=== PATIENT | female | born 1995 | race Caucasian/White ===

== ENCOUNTER 2021-02-15 13:38 | Emergency (ER) | payer MEDICAID, SELFPAY ==
--- NOTE | 2021-02-15 13:42 | W.ED.GENAD ---
Discharge Plan Disposition Patient Disposition: HOME Condition: Stable Discharge Details Clinical Impression: Contusion of right foot Primary Care Provider: Erica Umana ED Provider: Libertad Richard Home Meds and New Rx's Prescriptions: Continued medroxyprogesterone 150 MG/ML suspension 150 mg IM DIRECTED RF: 0 Discharge Instructions Instructions: Foot Contusion (ED) Additional Instructions: Rest, ice, and elevate the affected area as much as possible. Alternate tylenol and motrin as needed and directed for pain. Use the crutches for ambulation as needed. Follow-up with your primary care doctor in 1 week. Return to the emergency department with any worsening or new concerning symptoms. Referrals: Tucker Napier MD [ [facility] STAFF PHYSICIAN] - Discharge Data Discharge Physician: Libertad Richard Medical Decision Making 25-year-old female presents with right foot injury after caught between a cut off sawyer and blade just prior to arrival. No open wounds noted. There is an area of minimal ecchymosis, moderate edema and tenderness palpation to the mid to distal portion of her dorsal foot. There is no crepitus, cellulitis or deformity. She has neurovascular intact. Urine test negative. She was given a dose of ibuprofen here. Patient referred for x-rays which were negative for acute fracture but noted soft tissue swelling. Patient had an Arnold wrap placed to the left foot and placed in a postop shoe. Patient requesting crutches. She was given orthopedic follow-up information if needed. Usual and customary return precautions given prior to discharge. Medical Records Medical records reviewed: Yes I reviewed the patient's medical records. Imaging Data Radiologic Study: Radiologist's impression: XR Right Foot Exam date and time: 02/15/2021 2:18 PM Age: 25 years old Clinical indication: Other: Caught RT foot in cut off sawyer, R/O FX TECHNIQUE: Imaging protocol: XR Right foot. Views: 3 or more views. COMPARISON: No relevant prior studies available. FINDINGS: Bones/joints: Normal. Soft tissues: Lateral soft tissue swelling is noted. IMPRESSION: Soft tissue swelling. No acute fracture. XR Right Ankle Exam date and time: 02/15/2021 2:18 PM Age: 25 years old Clinical indication: Other: Caught RT foot in cut off sawyer, R/O FX TECHNIQUE: Imaging protocol: XR Right ankle. Views: 3 or more views. COMPARISON: No relevant prior studies available. FINDINGS: Bones/joints: Normal. Soft tissues: Normal. IMPRESSION: No acute findings. HPI General Mode of arrival: ambulatory. Date/Time Provider Initiated Documentation: 02/15/21 13:42. Limitations to Documentation: no limitations. Information obtained by: patient. HPI Narrative: Patient is a 25-year-old female who presents to the ED with a complaint of right foot injury after caught between a cut off sawyer blade and a scooter causing twisting injury of her foot just prior to arrival. Patient has not taken anything for pain. She denies any ankle injury. She states the main area of pain is her distal foot. Related Data Home Medications Medication Instructions Recorded Confirmed medroxyprogesterone 150 mg IM DIRECTED 12/16/13 02/15/21 Allergies Allergy/AdvReac Type Severity Reaction Status Date / Time No Known Allergies Allergy Unverified 02/15/21 13:54 Review of Systems All systems reviewed & are unremarkable except as noted in HPI and below PFSH Medical History (Updated 02/15/21 @ 16:57 by Libertad Richard DO) Anxiety Surgical History (Updated 02/15/21 @ 16:57 by Libertad Richard DO) History of adenoidectomy S/p bilateral myringotomy with tube placement Social History Smoking/Tobacco Use Status: Never Smoking risk assessment performed?: Yes Alcohol Intake: never Drug use: Occasionally Substance use type: marijuana Do you feel safe at home: Yes Do you feel safe in your relationship?: Yes Exam Const General: cooperative, healthy appearing and no acute distress HENMT Head: normal to inspection Mouth: oral mucosae normal Eyes General: appearance normal, both eyes and all related structures Neck Neck: normal visual inspection Resp Effort & Inspection: normal respiratory effort and able to speak in complete sentences Cardio Rate: regular rate Skin General skin exam: no rashes or lesions noted Neuro General: patient alert, patient awake and patient oriented x3 Motor: muscle tone normal throughout Extrem Ankle/foot/toe images: 1. Mild to moderate edema and tenderness overlying the mid to distal aspect of dorsal left foot. There is also minimal ecchymosis noted. No erythema, crepitus or deformity. Other: Left DP/PT pulses intact. Psych Appearance: grossly normal Affect: normal affect
--- NOTE | 2021-02-15 13:45 | DI.RAD_ITS ---
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 TECHNIQUE: 2D digital imaging was performed. COMPARISON: No exams were available for comparison FINDINGS: There is no prominent soft tissue swelling. Malleoli are intact. No obvious fracture lines nor wide doe of the mortise. Talar dome appears unremarkable. On the lateral view there is a small 1.7 millimeter calcific density seen off of the dorsal aspect of distal talus. Cannot exclude subtle avulsion at this level. Correlation with site of tenderness is recommended. No degenerative changes in the ankle and subtalar joints. No evidence of obvious osse ous tarsal coalition. IMPRESSION: DATA REPOSITORY: RADIATION DOSE DELIVERED:
--- NOTE | 2021-02-15 13:45 | DI.RAD_ITS ---
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 TECHNIQUE: 2D digital imaging was performed. COMPARISON: No exams were available for comparison FINDINGS: There are no obvious fracture lines nor diastasis of the Lisfranc joint. No radiopaque foreign body. No osseous lesions nor erosions. On the lateral view there is a 1 millimeter calcific density seen off the dorsal aspect of the distal talus, possibly significant. Correlation with site of tenderness is recommended. IMPRESSION: DATA REPOSITORY: RADIATION DOSE DELIVERED:
[2021-02-15 13:47] VITALS: BP 129/69; PULSE 98; RESP 18; TEMP 36.7; O2SAT 98
--- NOTE | 2021-02-15 14:41 | DI.VRAD_ITS ---
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 Views: 3 or more views. COMPARISON: No relevant prior studies available. FINDINGS: Bones/joints: Normal. Soft tissues: Lateral soft tissue swelling is noted. IMPRESSION: Soft tissue swelling. No acute fracture. Dictated and Authenticated by: Owen Vogt MD. Ordering:ALBA Maurer MD
--- NOTE | 2021-02-15 14:42 | DI.VRAD_ITS ---
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 Views: 3 or more views. COMPARISON: No relevant prior studies available. FINDINGS: Bones/joints: Normal. Soft tissues: Normal. IMPRESSION: No acute findings. Dictated and Authenticated by: Owen Vogt MD. Ordering:ALBA Maurer MD
[2021-02-15] MEDS: Ibuprofen 600 MG TAB PO (15:00)
== END 2021-02-15 15:40 | disposition home or self-care (01) ==
PROVIDERS: Emergency Provider Physician Assistant; PCP Psychiatry & Neurology Psychiatry
DX: S97.81XA Crushing injury of right foot, initial encounter (principal); S90.31XA Contusion of right foot, initial encounter; W23.1XXA Caught, crushed, jammed, or pinched between stationary objects, initial encounter
CPT/HCPCS: 81025; 99284; 73610; 73630

== ENCOUNTER 2023-11-29 17:15 | Emergency (ER) | payer MEDICAID, SELFPAY ==
[2023-11-29 17:22] VITALS: BP 126/77; PULSE 117; RESP 18; TEMP 36.8; O2SAT 96
--- NOTE | 2023-11-29 17:29 | ED.GENADUL_ITS ---
HPI General Stated Complaint: RespSymp JENNIE: 4 Date/Time Provider Initiated Documentation: 11/29/23 17:25. HPI Narrative: 28 year-old female presents to ED today by POV/ambulating with a chief complaint of L ear pain with onset one week ago, acute on chronic- has history of ear tubes, states this pain is giving her a headache, has sore throat, mild cough. Quality described as painful, no radiation to overt fever, shortness of breath, nausea/vomiting, abdominal pain. Severity is described as severe. Palliating factors include tried peroxide ear drops at home. Provoking factors include chronic history of myringotomy tubes. Events leading up to the incident/Ass ociated Symptoms: Patient does not have an ENT doctor, patient feels antibiotics do not work on her, wants her ears cleaned out, but is unsure of the specifics of this procedure. Patient not anticoagulated. Related Data Home Medications Medication Instructions Recorded Confirmed medroxyprogesterone 150 mg/mL 150 mg IM DIRECTED 12/16/13 02/15/21 intramuscular suspension amoxicillin 875 mg-potassium 1 tab PO BID AOM 14 days #28 tabs 11/29/23 clavulanate 125 mg tablet Previous Rx's Medication Instructions Recorded amoxicillin 875 mg-potassium 1 tab PO BID AOM 14 days #28 tabs 11/29/23 clavulanate 125 mg tablet Allergies Allergy/AdvReac Type Severity Reaction Status Date / Time No Known Allergies Allergy Unverified 11/29/23 17:24 Review of Systems All systems reviewed & are unremarkable except as noted in HPI and below PFSH All Active Problems (Updated 11/29/23 @ 18:33 by UZMA Lepe) Acute otitis media (Acute) Contusion of right foot (Acute) Medical History (Updated 11/29/23 @ 18:33 by UZMA Lepe) Anxiety Surgical History (Updated 02/15/21 @ 16:57 by Libertad Richard DO) History of adenoidectomy S/p bilateral myringotomy with tube placement Social History Smoking/Tobacco Use Status: Never Smoking risk assessment performed?: Yes Alcohol Intake: never Drug use: Occasionally Substance use type: marijuana Do you feel safe at home: Yes Do you feel safe in your relationship?: Yes Exam Narrative Exam Narrative: GENERAL APPEARANCE: Well-nourished, non-toxic, awake and alert, atraumatic, no acute distress. SKIN: Warm, pink, dry, intact, without rashes/lesions/ulcerations. HEAD: Normocephalic, atraumatic, normal hair distribution for gender/age. EYES: Pupils PERRLA, EOMs intact without nystagmus, normal conjunctiva, no exudates on lids/lashes. 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 NECK: Supple, trachea midline, painless cervical ROM. LUNGS/CHEST: Non-labored respirations, normal A/P diameter, symmetrical expansion, no chest wall deformity HEART (CV/PV): No peripheral edema, no JVD. ABDOMEN: Soft, non-distended, no guarding. MSK: Normal ROM, no swelling/deformity to bilateral UEs or LEs, moving all extremities without weakness, no cyanosis, spine midline without tenderness, normal curvature. NEURO: Mental Status AAOx4 - alert to person, place, time, events No facial droop, no forehead involvement. Motor: No focal weakness - strength 5/5 in bilateral UEs and LEs, proximal and distal, symmetric. Sensory: sensation intact to light touch globally. Gait normal: patient ambulated without ataxia into ED room. PSYCH: dysthymic, cooperative, extremely unpleasant- swearing at multiple staff members, appropriate speech Course Vital Signs Vital signs: Vital Signs Temperature 36.8 C 11/29/23 17:22 Pulse 117 H 11/29/23 17:22 Respiratory Rate 18 11/29/23 17:22 Blood Pressure 126/77 11/29/23 17:22 Pulse Oximetry 96 11/29/23 17:22 Temperature 36.8 C 11/29/23 17:22 Temperature Source Oral 11/29/23 17:22 Pulse 117 H 11/29/23 17:22 Respiratory Rate 18 11/29/23 17:22 Blood Pressure 126/77 11/29/23 17:22 Blood Pressure Position Sitting 11/29/23 17:22 Pulse Oximetry 96 11/29/23 17:22 Oxygen Delivery Method Room Air 11/29/23 17:22 Oxygen Flow Rate 0 11/29/23 17:22 Medical Decision Making This dictation utilizes [id number] dictation software and may contain unedited grammatical errors. 28 y/o F presents to ED today with a chief complaint of L ear pain for 1 week, mild sore throat, headache, and cough. Patient has complex history of myringotomy tubes, denies fever, tolerating PO intake. Patients' medical history: history ear problems. Family and social history: noncontributory. 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 Differential / pathologies of concern include AOM, CSOM, AOE, not mastoiditis. Diagnostic studies of: -Rapid Covid/Flu, Rapid strep - all negative. Interventions of: -recommend outpatient Rx Augmentin- patient became extremely rude at this demanding some sort of ear cleansing procedure. 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 I counseled the patient that she needs to follow-up with the ENT for possible CS OM issues, she started swearing at multiple staff members at this point when I offered her antibiotic stating antib iotics do not work on her, counseled on Tylenol and ibuprofen. Findings not consistent with mastoiditis, sepsis, covid/flu/respiratory illness. Disposition of acute otitis media. Patient verbalized understanding of the plan and return to ED criteria and engaged in shared decision making. Medical Records Medical records reviewed: Yes I reviewed the patient's medical records. Lab Data Lab results reviewed: Yes I reviewed the patient's lab results. Lab results narrative: Rapid covid/flu neg Rapid strep neg Labs: 11/29/23 18:10 Tonsil - Not Specified Group A Streptococcus Culture - Pend ing Quality:SDOH Health Related Social Needs: No Data to Display Discharge Plan Disposition Patient Disposition: Home Condition: Stable Discharge Details Clinical Impression: Acute otitis media Primary Care Provider: Erica Umana ED Provider: Miguel Garay Home Meds and New Rx's Prescriptions: New amoxicillin-pot clavulanate 875-125 mg tablet 1 tab PO BID 14 Days Qty: 28 0RF No Action medroxyprogesterone 150 MG/ML suspension 150 mg IM DIRECTED Patient Comments: Q 3 months Discharge Instructions Instructions: Amoxicillin/Clavulanate Potassium (By mouth), Ear Infection (ED) Additional Instructions: You are seen in the emergency department for your acute on chronic left ear pain, 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 Ear irrigation is not something we perform in the emergency department you need to follow-up with an ear nose and throat doctor, you likely have an ear infection due to the ability of bacteria to get through your perforated tympanic membrane currently. I have sent Augmentin to [facility] in [place], we gave you a dose to start tonight here. Please use therapeutic dosing of Tylenol (acetamenophen) & Advil (ibuprofen) in an alternating fashion as follows: Take 1000mg of Tylenol every 6 hours without missing doses- that is 4 times per day. [place] in between the Tylenol dosings, take 400-600mg of Advil also on a 6 hour schedule, that is also 4 times per day. The daily maximum dosing of Tylenol is 4000mg, and the daily maximum dosing of Advil is 2400mg. This is safe to do for weeks. Please note that some common cold medications & prescription pain medications may contain acetamenophen and you need to read OTC drug labels and factor that in to maximum daily dosings. Please return for severe increase in pain and fever despite treatment, any other emergent concerns Referrals: Erica Umana [Primary Care Provider] - Bryn Paulson MD [ [facility] ST[facility]FF PHYSICIAN] -
[2023-11-29 19:09] VITALS: BP 132/72; PULSE 68; RESP 18; O2SAT 98
[2023-11-29] MEDS: Amoxicillin 875/Clav. 125 TAB PO (19:10)
== END 2023-11-29 19:10 | disposition home or self-care (01) ==
PROVIDERS: Emergency Provider Physician Assistant; PCP Psychiatry & Neurology Psychiatry
DX: H66.92 Otitis media, unspecified, left ear (principal); R07.0 Pain in throat; R05.1 Acute cough; R51.9 Headache, unspecified
CPT/HCPCS: 99283; 87081

== ENCOUNTER 2025-11-05 16:56 | Emergency (ER) | payer MEDICAID, SELFPAY ==
[2025-11-05 16:57] VITALS: BP 142/84; PULSE 71; RESP 16; TEMP 36.6; O2SAT 97
[2025-11-05 17:18] VITALS: BP 142/84; PULSE 71; RESP 16; TEMP 36.6; O2SAT 97
--- NOTE | 2025-11-05 17:51 | W.ED.GENAD ---
Discharge Plan Disposition Patient Disposition: Home Condition: Stable Discharge Details Clinical Impression: Otitis externa of right ear Primary Care Provider: Erica Umana ED Provider: Bindu Mistry Home Meds and New Rx's Prescriptions: No Action medroxyprogesterone 150 MG/ML suspension 150 mg IM DIRECTED Patient Comments: Q 3 months amoxicillin-pot clavulanate [Augmentin] 500-125 mg tablet 1 tab PO BID Discharge Instructions Instructions: Outer Ear Infection ED Additional Instructions: You were seen in the emergency department today for evaluation of fullness and fluid draining out of your right ear. Your exam is most concerning for otitis externa, and we placed a wick in your ear after removing as much of the pus as we could, to allow the antibiotics to penetrate all the way to the back of the ear. You also need to continue taking your oral antibiotics until they are gone, even if you start to feel better. Please use therapeutic dosing of Tylenol (acetaminophen) & Advil (ibuprofen) in an alternating fashion as follows: Take 1000mg of Tylenol every 6 hours without missing doses- that is 4 times per day. [place] in between the Tylenol doses, take 600mg of Advil also on a 6 hour schedule, that is also 4 times per day. With this strategy, you will be taking something for fever/pain as often as every 3 hours. The daily maximum dosing of Tylenol is 4000mg, and the daily maximum dosing of Advil is 2400mg. Please note that some common cold medications & prescription pain medications may contain acetaminophen and you need to read OTC drug labels and factor that in to maximum daily doses. Please follow-up with your primary care provider in the next few days to discuss this visit and any symptoms that change, worsen, or persist. Thank you for allowing us to be part of your care. Stand Alone Forms: Portal Information HPI General Mode of arrival: ambulatory. Date/Time Provider Initiated Documentation: 11/05/25 17:02. Limitations to Documentation: no limitations. Information obtained by: patient and old records reviewed. HPI Narrative: This is a 30-year-old female patient with a history of recurrent ear infections, presenting for evaluation of right ear discharge. The patient reports that she was started on Augmentin and eardrops over the weekend, the patient reports that she has been taking these but noticed increasing discharge from her right ear today and is concerned that her ear needs to be drained. Have a history of tympanostomy tubes as a child. Otherwise, the patient is without fever or chills, stuffy or runny nose, states that she has been taking the medication as prescribed. She Related Data Home Medications ?Medication ?Instructions ?Recorded ?Confirmed medroxyprogesterone 150 mg/mL 150 mg IM DIRECTED 12/16/13 11/05/25 intramuscular suspension amoxicillin 500 mg-potassium 1 tab PO BID 11/05/25 11/05/25 clavulanate 125 mg tablet (Augmentin) Allergies Allergy/AdvReac Type Severity Reaction Status Date / Time No Known Allergies Allergy Unverified 11/05/25 17:02 General Stated Complaint: EarProblem JENNIE: 4 Exam Narrative Exam Narrative: Gen: Awake and alert, in no apparent distress HEENT: Non-icteric sclera, PERRL, EOMs are full. The left TM is clear though scarred, with minimal induration of the external ear canal. The right TM is almost entirely pus occluded, after removing the majority of pus with an ear wick and gentle Q-tip at the opening of the external ear canal, I am able to visualize an edematous and swollen external ear canal, with a brief incomplete glimpse at the TM without obvious bulging. Certainly cannot rule out TM perforation Neck: Supple Lungs: No apparent respiratory distress, normal respiratory effort. Lung sounds clear and equal bilaterally without wheezes, rhonchi, rales CV: Appears well perfused, heart with regular rate and rhythm, strong distal pulses Abdomen: Non-distended, soft, nontender to palpation without rigidity, rebound, or guarding. MSK: Moves 4 extremities without apparent limitation in ROM. No peripheral edema Skin: Visualized skin without rashes, cyanosis. Neuro: Normal Gait, no obvious focal deficits or facial asymmetry. Speaks in full, clear sentences. Psych: Appropriate for situation. Course Vital Signs Vital signs: Vital Signs Temperature 36.6 C 11/05/25 16:57 Pulse 71 11/05/25 16:57 Respiratory Rate 16 11/05/25 16:57 Blood Pressure 142/84 H 11/05/25 16:57 Pulse Oximetry 97 11/05/25 16:57 Temperature 36.6 C 11/05/25 17:18 Temperature Source Oral 11/05/25 17:18 Pulse 71 11/05/25 17:18 Respiratory Rate 16 11/05/25 17:18 Blood Pressure 142/84 H 11/05/25 17:18 Pulse Oximetry 97 11/05/25 17:18 Oxygen Delivery Method Room Air 11/05/25 17:18 Oxygen Flow Rate 0 11/05/25 16:57 Pain Level 5 11/05/25 17:18 Medical Decision Making This is a 30-year-old female patient presenting for evaluation of right ear pain and discharge. My differential includes but is not limited to otitis externa, otitis media with TM perforation, reassuringly the patient is otherwise in her normal state of health, with no mastoid tenderness or swelling, fever or chills to suggest sepsis or bacteremia, nor upper respiratory symptoms. As the patient is appropriately taking Augmentin, I feel it reasonable to continue this antibiotic, but the patient would benefit from a wick in her right ear to ensure efficacy of the eardrops. She had the wick placed and I provided her with 3 replacements, and she understands that they will fall out on their own and she can replace them as needed. I did attempt to provide the patient with a dose here of ofloxacin, we had some delay in getting this medication from the pharmacy and unfortunately the patient left the hospital prior to receiving this medication. However, as she has eardrops already in hand at home I do not feel that this represents an AGAINST MEDICAL ADVICE discharge. At this time, the patient has had a full medical evaluation and is safe for discharge to home. They are hemodynamically stable, ambulatory, and tolerating PO. They are understanding of the follow-up plan and return precautions. They left our facility without incident. Bindu Mistry MD [facility] All Active Problems (Updated 11/05/25 @ 17:53 by Bindu Mistry MD) Otitis externa of right ear (Acute) Contusion of right foot (Acute) Medical History (Updated 11/05/25 @ 17:53 by Bindu Mistry MD) Anxiety Surgical History (Updated 02/15/21 @ 16:57 by Libertad Richard DO) History of adenoidectomy S/p bilateral myringotomy with tube placement Social History Smoking/Tobacco Use Status: Never Smoking risk assessment performed?: Yes Alcohol Intake: never Drug use: Occasionally Substance use type: marijuana Housing: house Do you feel safe at home: Yes Do you feel safe in your relationship?: Yes
== END 2025-11-05 17:53 | disposition home or self-care (01) ==
LOC: ER 18:35
PROVIDERS: Emergency Provider Emergency Medicine; PCP Psychiatry & Neurology Psychiatry
DX: H60.391 Other infective otitis externa, right ear (principal)
CPT/HCPCS: 99283 ×2